=== PATIENT | female | born 1990 | race Caucasian/White ===

== ENCOUNTER 2022-05-16 10:11 | Outpatient (REF) | payer OTHER, MEDICAID, SELFPAY ==
[2022-05-16 11:19] LABS: C Reactive Protein 0.13 mg/dL (< or = 0.50); Iron 25 mcg/dL (30-160); Percent Iron Saturation 5 % (15-50); Total Iron Binding Capacity 502 mcg/dL (228-428); Unsaturated Iron Binding 477 ug/dL
[2022-05-16 11:34] LABS: TSH reflex Free T4 1.75 uIU/mL (0.32-4.0)
[2022-05-16 15:01] LABS: Vitamin B12 879 pg/mL (200-900)
[2022-05-18 20:48] LABS: Anti DNA DS Antibody 1 IU/mL; SM/Ribonucleoprotein Ab <1.0 NEG AI (<1.0 NEG); Smith Protein <1.0 NEG AI (<1.0 NEG)
== END 2022-05-16 10:12 | disposition home or self-care (01) ==
LOC: HO.10HDL 10:11
PROVIDERS: Visit Provider Nurse Practitioner Family
DX: R76.8 Other specified abnormal immunological findings in serum (principal); R53.83 Other fatigue
CPT/HCPCS: 36415; 82607; 83540; 84443; 85025; 86140; 86225; 86235

== ENCOUNTER 2022-05-24 09:06 | Outpatient (REF) | payer OTHER, MEDICAID, SELFPAY ==
--- NOTE | ~2022-05-24 | XR_ITS ---
EXAMINATION: XR HIP, LEFT CLINICAL INFORMATION: M25.552 - Pain in left hip COMPARISON: None TECHNIQUE: Two views of the left hip. FINDINGS: No hip joint narrowing or erosive change. Soft tissue planes appear normal. Normal bony mineralization. The left SI joint and pubis show no diastases or erosive change. XR/XR hip LT min 2V IMPRESSION: Normal left hip.
--- NOTE | ~2022-05-24 | XR_ITS ---
EXAMINATION: XR KNEE, LEFT CLINICAL INFORMATION: M25.562 - Pain in left knee COMPARISON: None TECHNIQUE: Three views of the left knee. FINDINGS: AP view is slightly obliqued. Normal bony mineralization. No fracture, dislocation, or destructive process. Suprapatellar bursa is within limits of normal. No definite effusion. Hoffa's fat pad appears normal. No joint narrowing or erosive change or chondrocalcinosis. XR/XR knee LT 3V IMPRESSION: Unremarkable left knee.
[2022-05-24 09:38] LABS: MANUAL DIFF FLAG NO
[2022-05-24 10:32] LABS: Basophils Percent Auto 0.3 % (0-2); Eosinophils Absolute Auto 0.1 X10*3/uL (0.0-0.4); Eosinophils Percent Auto 0.7 % (0-4); Hematocrit 31.4 % (37.0-47.0); Hemoglobin 9.5 g/dl (12.0-16.0); Imm Gran Abs Auto 0.03 X10*3/uL (0.00-0.03); Imm Gran Pct Auto 0.3 % (0.0-0.4); Lymphocytes Absolute Auto 2.2 X10*3/uL (1.2-4.9); Lymphocytes Percent Auto 24.3 % (20-40); Mean Corpuscular HGB Conc 30.3 g/dl (31.0-35.0); Mean Corpuscular Hemoglobin 22.4 pg (27.0-33.0); Mean Corpuscular Volume 74.1 fL (80.0-98.0); Mean Platelet Volume 10.8 fL (9.4-12.3); Monocytes Absolute Auto 0.7 X10*3/uL (0.1-1.2); Monocytes Percent Auto 7.7 % (2-11); Neutrophils Percent Auto 66.7 % (45-73); Platelet Count 310 X10*3/uL (160-400); Red Blood Count 4.24 X10*6/uL (4.20-5.50); Red Cell Distribution Width 16.6 % (11.0-16.0); White Blood Count 8.9 X10*3/uL (4.8-10.8)
== END 2022-05-24 09:07 | disposition home or self-care (01) ==
LOC: HO.XRAY 09:06
PROVIDERS: PCP Internal Medicine; Visit Provider Nurse Practitioner Family
DX: M25.562 Pain in left knee (principal); M25.552 Pain in left hip; R76.8 Other specified abnormal immunological findings in serum
CPT/HCPCS: 36415; 73502; 73562; 85025

== ENCOUNTER → 2024-01-01 13:00 | Outpatient (BNV) | payer OTHER, SELFPAY | PROVIDERS: PCP Family Medicine; Referring Provider Surgery; Visit Provider Internal Medicine | DX: D50.0 Iron deficiency anemia secondary to blood loss (chronic) (principal); N92.0 Excessive and frequent menstruation with regular cycle | CPT/HCPCS: 99204 ==